=== PATIENT | female | born 1975 | race African-American/Black ===

== ENCOUNTER 2020-03-11 11:35 | Inpatient (IN) ==
[2020-03-11] MEDS ORDERED: HYDROmorphone 2 MG/1 ML VIAL IV STA (12:25)
[2020-03-11] MEDS ORDERED: ONDANSETRON 4 MG/2 ML VIAL IV STA (12:25)
[2020-03-11 12:34] LABS: Basophils # 0.1 10*3/uL (0.0-0.2); Basophils % 0.3 % (0.0-0.8); Eosinophils # 1.1 10*3/uL (0.0-0.87); Eosinophils % 4.7 % (0.00-10.9); Hematocrit 31.7 VOL% (35.7-47.0); Hemoglobin 10.6 GM/DL (12.0-16.0); Immature Granulocytes % 3.8 %; Immature Granulocytes Absolute 0.85 #; Lymphocytes # 2.9 10*3/uL (1.4-4.0); Lymphocytes % 12.9 % (21.3-54.2); Mean Corpuscular HGB Conc 33.4 GM/DL (32-36); Mean Corpuscular Volume 76.2 FL (87-102); Monocytes % 3.3 % (1.7-12.7); NRBC # 0.16 10*3/uL; Platelet Count 251 T/CUMM (130-400); Red Blood Count 4.16 MC/CUMM (3.8-5.5); Red Cell Distribution Width 18.3 % (9.3-17.3); White Blood Count 22.1 T/CUMM (4-12)
[2020-03-11 12:52] LABS: Albumin 2.1 G/DL (3.4-5.0); Bilirubin,Total 0.9 MG/DL (0.2-1.0); Calcium 7.9 MG/DL (8.5-10.1); Total Protein 7.7 G/DL (6.4-8.3)
[2020-03-11 13:12] LABS: Band Neutrophils 12 % (0-10); Eosinophils 8 % (0-10); Lymphocytes 14 % (20-55); Nucleated Red Blood Cells 4 (0-5); Segmented Neutrophils 62 % (50-85); Total Cells Counted 100
[2020-03-11 13:15] LABS: Anisocytosis 1+; Macrocytosis Slight; Polychromasia Slight; Smudge Cells Few
[2020-03-11] MEDS ORDERED: SIMETHICONE CHEW 125 MG TABLET PO PRN (15:47)
[2020-03-11] MEDS ORDERED: GLUCAGON 1 MG VIAL IM PRN (15:47)
[2020-03-11] MEDS ORDERED: ONDANSETRON 4 MG/2 ML VIAL IV PRN (15:47)
[2020-03-11] MEDS ORDERED: DEXTROSE 50% 25 GM/50 ML VIAL IV PRN (15:47)
[2020-03-11] MEDS ORDERED: BISACODYL 5 MG TABLET PO PRN (15:47)
[2020-03-11] MEDS ORDERED: AMPICILLIN/SULBACTAM 3,000 MG VIAL ONE (16:48)
[2020-03-11] MEDS ORDERED: AMPICILLIN/SULBACTAM 3,000 MG in SODIUM CHLORIDE 0.9% 100 ML IV SCH (17:00)
[2020-03-11] MEDS: ENOXAPARIN 40 MG/0.4 ML SYRINGE SUBCUT SCH (17:08)
[2020-03-11 17:50] LABS: Apearance,Urine Slightly Hazy (Clear); Blood, Urine Negative (Negative); Glucose,Urine (UA) Negative (Negative); Ketones,Urine 20 mg/dL (Negative); Mucus,Urine Many /LPF (Occasional); Nitrite,Urine Negative (Negative); Protein,Urine 30 MG/DL; RBC,Urine 4 /HPF (0-4); Squamous Epithelial Cell,Urine Occasional /HPF (0-10); Urine Color Amber (Yellow); Urine Specific Gravity 1.026 (1.001-1.035); WBC,Urine 1 /HPF (0-6)
[2020-03-11 17:51] LABS: Bilirubin,Urine Small mg/dL (Negative)
[2020-03-11] MEDS ORDERED: VANCOMYCIN INJ 1,000 MG in SODIUM CHLORIDE 0.9% 250 ML IV SCH (18:00)
[2020-03-11] MEDS: CEFEPIME 1,000 MG in SODIUM CHLORIDE 0.9% 100 ML IV SCH (20:00)
[2020-03-11] MEDS: LINEZOLID INJ 600 MG in PREMIX 1 EACH IV SCH (20:27)
[2020-03-11] MEDS: ACETAMINOPHEN 325 MG TABLET PO PRN (20:27)
[2020-03-11] MEDS: NYSTATIN POWDER 15 GM BOTTLE TOP SCH (22:20)
[2020-03-11] MEDS: KETOROLAC 15 MG/1 ML VIAL IV PRN (22:21)
[2020-03-12] MEDS: CEFEPIME 1,000 MG in SODIUM CHLORIDE 0.9% 100 ML IV SCH ×4 (00:10→17:24)
[2020-03-12] MEDS: KETOROLAC 15 MG/1 ML VIAL IV PRN (04:30)
[2020-03-12 06:49] LABS: Basophils # 0.1 10*3/uL (0.0-0.2); Basophils % 0.3 % (0.0-0.8); Eosinophils % 4.8 % (0.00-10.9); Hemoglobin 10.9 GM/DL (12.0-16.0); Immature Granulocytes % 3.5 %; Immature Granulocytes Absolute 0.69 #; Lymphocytes # 2.9 10*3/uL (1.4-4.0); Lymphocytes % 14.9 % (21.3-54.2); Mean Corpuscular Volume 77.6 FL (87-102); Mean Platelet Volume 11.1 FL (9.6-12.0); Monocytes % 3.1 % (1.7-12.7); NRBC # 0.13 10*3/uL; Neutrophils % 73.4 % (38.7-73.9); Platelet Count 270 T/CUMM (130-400); Red Blood Count 4.25 MC/CUMM (3.8-5.5); Red Cell Distribution Width 18.6 % (9.3-17.3); White Blood Count 19.6 T/CUMM (4-12)
[2020-03-12 07:26] LABS: Albumin 2.2 G/DL (3.4-5.0); Bilirubin,Total 1.5 MG/DL (0.2-1.0); Calcium 7.9 MG/DL (8.5-10.1); Risk Ratio 3.36; Thyroid Stimulating Hormone 4.01 uIU/ml (0.358-3.74); Total Protein 7.8 G/DL (6.4-8.3); VLDL CHOLESTEROL 18.6 MG/DL
[2020-03-12 08:38] LABS: Free T4 (Free Thyroxine) 1.4 NG/DL (0.76-1.46)
[2020-03-12] MEDS: HYDROmorphone 2 MG/1 ML VIAL IV PRN ×3 (08:45→22:44)
[2020-03-12 09:00] LABS: Eosinophils 5 % (0-10); Hypochromasia 1+; Lymphocytes 8 % (20-55); Macrocytosis Slight; Nucleated Red Blood Cells 2 (0-5); Platelet Estimate Adequate; Segmented Neutrophils 84 % (50-85); Total Cells Counted 100
[2020-03-12] MEDS: LINEZOLID INJ 600 MG in PREMIX 1 EACH IV SCH ×2 (09:33→20:50)
[2020-03-12] MEDS: NYSTATIN POWDER 15 GM BOTTLE TOP SCH ×3 (10:08→21:01)
[2020-03-12] MEDS ORDERED: FUROSEMIDE 40 MG/4 ML VIAL IV ONE (11:52)
[2020-03-12] MEDS: ENOXAPARIN 40 MG/0.4 ML SYRINGE SUBCUT SCH (16:32)
[2020-03-13] MEDS: CEFEPIME 1,000 MG in SODIUM CHLORIDE 0.9% 100 ML IV SCH ×4 (00:48→17:20)
[2020-03-13] MEDS: LEVOTHYROXINE 150 MCG TABLET PO SCH (05:40)
[2020-03-13 06:47] LABS: Basophils # 0.1 10*3/uL (0.0-0.2); Basophils % 0.3 % (0.0-0.8); Eosinophils # 0.9 10*3/uL (0.0-0.87); Hematocrit 33.8 VOL% (35.7-47.0); Hemoglobin 10.8 GM/DL (12.0-16.0); Immature Granulocytes % 2.6 %; Immature Granulocytes Absolute 0.39 #; Lymphocytes # 2.6 10*3/uL (1.4-4.0); Lymphocytes % 17.4 % (21.3-54.2); Mean Corpuscular Volume 78.2 FL (87-102); Mean Platelet Volume 10.9 FL (9.6-12.0); Neutrophils % 69.7 % (38.7-73.9); Platelet Count 313 T/CUMM (130-400); Red Blood Count 4.32 MC/CUMM (3.8-5.5); Red Cell Distribution Width 18.3 % (9.3-17.3)
[2020-03-13 07:09] LABS: Calcium 7.8 MG/DL (8.5-10.1)
[2020-03-13 07:12] LABS: Band Neutrophils 2 % (0-10); Eosinophils 4 % (0-10); Hypochromasia 1+; Lymphocytes 14 % (20-55); Platelet Estimate Adequate; Segmented Neutrophils 76 % (50-85); Total Cells Counted 100
[2020-03-13 07:13] LABS: Macrocytosis Slight
[2020-03-13] MEDS: LINEZOLID INJ 600 MG in PREMIX 1 EACH IV SCH (08:59)
[2020-03-13] MEDS: NYSTATIN POWDER 15 GM BOTTLE TOP SCH ×3 (10:14→20:59)
[2020-03-13] MEDS: HYDROmorphone 2 MG/1 ML VIAL IV PRN (10:22)
[2020-03-13] MEDS: fentaNYL 75 MCG/HR PATCH TRANSDERM SCH (15:24)
[2020-03-13] MEDS: FERROUS SULFATE 300 MG/5 ML UDCUP PO SCH ×2 (15:24→20:58)
[2020-03-13] MEDS: metOLazone 2.5 MG TABLET PO SCH (15:24)
[2020-03-13] MEDS: ENOXAPARIN 40 MG/0.4 ML SYRINGE SUBCUT SCH (15:25)
[2020-03-13] MEDS: FUROSEMIDE 40 MG TABLET PO SCH (15:25)
[2020-03-13] MEDS: PREGABALIN 50 MG CAPSULE PO SCH (20:58)
[2020-03-13] MEDS: POTASSIUM CHLORIDE 8 MEQ CAPSULE PO SCH (20:58)
[2020-03-13] MEDS: KETOROLAC 15 MG/1 ML VIAL IV PRN (22:50)
[2020-03-14] MEDS: CEFEPIME 1,000 MG in SODIUM CHLORIDE 0.9% 100 ML IV SCH ×5 (00:05→23:27)
[2020-03-14] MEDS: diphenhydrAMINE CAP 25 MG CAPSULE PO PRN ×2 (04:10→12:06)
[2020-03-14] MEDS: KETOROLAC 15 MG/1 ML VIAL IV PRN (04:40)
[2020-03-14] MEDS: LEVOTHYROXINE 150 MCG TABLET PO SCH (06:12)
[2020-03-14] MEDS: MELOXICAM 7.5 MG TABLET PO SCH (08:16)
[2020-03-14] MEDS: FERROUS SULFATE 300 MG/5 ML UDCUP PO SCH ×3 (08:16→20:43)
[2020-03-14] MEDS: NYSTATIN POWDER 15 GM BOTTLE TOP SCH ×3 (08:16→20:48)
[2020-03-14] MEDS: POTASSIUM CHLORIDE 8 MEQ CAPSULE PO SCH ×2 (08:16→20:38)
[2020-03-14] MEDS: FUROSEMIDE 40 MG TABLET PO SCH ×2 (08:16→16:18)
[2020-03-14] MEDS: PREGABALIN 50 MG CAPSULE PO SCH ×2 (08:16→20:38)
[2020-03-14] MEDS: metOLazone 2.5 MG TABLET PO SCH (08:16)
[2020-03-14] MEDS: ESCITALOPRAM 10 MG TABLET PO SCH (08:16)
[2020-03-14 08:20] LABS: Basophils % 0.3 % (0.0-0.8); Eosinophils # 0.7 10*3/uL (0.0-0.87); Eosinophils % 5.7 % (0.00-10.9); Hematocrit 33.3 VOL% (35.7-47.0); Hemoglobin 10.9 GM/DL (12.0-16.0); Immature Granulocytes % 1.8 %; Immature Granulocytes Absolute 0.21 #; Lymphocytes # 2.4 10*3/uL (1.4-4.0); Lymphocytes % 20.2 % (21.3-54.2); Mean Corpuscular HGB Conc 32.7 GM/DL (32-36); Mean Corpuscular Volume 76.6 FL (87-102); Mean Platelet Volume 10.2 FL (9.6-12.0); Monocytes % 3.7 % (1.7-12.7); NRBC # 0.13 10*3/uL; Neutrophils % 68.3 % (38.7-73.9); Platelet Count 328 T/CUMM (130-400); Red Blood Count 4.35 MC/CUMM (3.8-5.5); Red Cell Distribution Width 18.5 % (9.3-17.3); White Blood Count 11.9 T/CUMM (4-12)
[2020-03-14 08:28] LABS: Calcium 8.1 MG/DL (8.5-10.1); Osmolality,Calculated 266.1 MOS/KG (273-304)
[2020-03-14 08:45] LABS: Calcium 7.8 MG/DL (8.5-10.1); Osmolality,Calculated 266.1 MOS/KG (273-304)
[2020-03-14] MEDS: MOISTURIZING CREAM (EUCERIN) 106 GM JAR TOP SCH ×3 (12:06→20:48)
[2020-03-14] MEDS: ENOXAPARIN 40 MG/0.4 ML SYRINGE SUBCUT SCH (16:18)
[2020-03-14] MEDS: HYDROmorphone 2 MG TABLET PO PRN (19:54)
[2020-03-15] MEDS: HYDROmorphone 2 MG TABLET PO PRN ×3 (05:25→20:36)
[2020-03-15] MEDS: diphenhydrAMINE CAP 25 MG CAPSULE PO PRN ×2 (05:25→13:26)
[2020-03-15] MEDS: CEFEPIME 1,000 MG in SODIUM CHLORIDE 0.9% 100 ML IV SCH (05:26)
[2020-03-15] MEDS: LEVOTHYROXINE 150 MCG TABLET PO SCH (05:36)
[2020-03-15 06:01] LABS: Basophils % 0.4 % (0.0-0.8); Eosinophils # 0.6 10*3/uL (0.0-0.87); Eosinophils % 6.1 % (0.00-10.9); Hematocrit 37.4 VOL% (35.7-47.0); Hemoglobin 12.2 GM/DL (12.0-16.0); Lymphocytes # 1.9 10*3/uL (1.4-4.0); Lymphocytes % 18.9 % (21.3-54.2); Mean Corpuscular HGB Conc 32.6 GM/DL (32-36); Mean Corpuscular Volume 78.1 FL (87-102); Mean Platelet Volume 10.6 FL (9.6-12.0); Monocytes % 3.5 % (1.7-12.7); NRBC # 0.09 10*3/uL; Neutrophils % 70.1 % (38.7-73.9); Platelet Count 266 T/CUMM (130-400); Red Blood Count 4.79 MC/CUMM (3.8-5.5); Red Cell Distribution Width 18.8 % (9.3-17.3)
[2020-03-15 06:38] LABS: Albumin 2.2 G/DL (3.4-5.0); Bilirubin,Total 0.7 MG/DL (0.2-1.0); Calcium 8.5 MG/DL (8.5-10.1); Total Protein 8.2 G/DL (6.4-8.3)
[2020-03-15] MEDS: MOISTURIZING CREAM (EUCERIN) 106 GM JAR TOP SCH ×4 (09:03→20:38)
[2020-03-15] MEDS: FERROUS SULFATE 300 MG/5 ML UDCUP PO SCH ×3 (09:04→20:36)
[2020-03-15] MEDS: PREGABALIN 50 MG CAPSULE PO SCH ×2 (09:04→20:36)
[2020-03-15] MEDS: POTASSIUM CHLORIDE 8 MEQ CAPSULE PO SCH ×2 (09:04→20:36)
[2020-03-15] MEDS: MELOXICAM 7.5 MG TABLET PO SCH (09:04)
[2020-03-15] MEDS: ESCITALOPRAM 10 MG TABLET PO SCH (09:04)
[2020-03-15] MEDS: FUROSEMIDE 40 MG TABLET PO SCH ×2 (09:04→15:35)
[2020-03-15] MEDS: metOLazone 2.5 MG TABLET PO SCH (09:04)
[2020-03-15] MEDS: PANTOPRAZOLE 40 MG TABLET PO SCH (09:04)
[2020-03-15] MEDS: NYSTATIN POWDER 15 GM BOTTLE TOP SCH ×3 (09:06→21:45)
[2020-03-15] MEDS: DESITIN 4OZ/NYSTATIN 15 GRAM MIXTURE PASTE TOP SCH ×2 (13:26→20:38)
[2020-03-15] MEDS: ENOXAPARIN 40 MG/0.4 ML SYRINGE SUBCUT SCH ×2 (15:35→15:37)
[2020-03-16] MEDS: HYDROmorphone 2 MG TABLET PO PRN ×3 (03:56→18:19)
[2020-03-16] MEDS: diphenhydrAMINE CAP 25 MG CAPSULE PO PRN ×3 (03:57→18:21)
[2020-03-16] MEDS: LEVOTHYROXINE 150 MCG TABLET PO SCH (05:31)
[2020-03-16] MEDS: PREGABALIN 50 MG CAPSULE PO SCH ×2 (09:50→21:41)
[2020-03-16] MEDS: FERROUS SULFATE 300 MG/5 ML UDCUP PO SCH ×3 (09:51→21:41)
[2020-03-16] MEDS: MELOXICAM 7.5 MG TABLET PO SCH (09:51)
[2020-03-16] MEDS: PANTOPRAZOLE 40 MG TABLET PO SCH (09:51)
[2020-03-16] MEDS: metOLazone 2.5 MG TABLET PO SCH (09:51)
[2020-03-16] MEDS: POTASSIUM CHLORIDE 8 MEQ CAPSULE PO SCH ×2 (09:51→21:40)
[2020-03-16] MEDS: FUROSEMIDE 40 MG TABLET PO SCH ×2 (09:51→18:00)
[2020-03-16] MEDS: ESCITALOPRAM 10 MG TABLET PO SCH (09:51)
[2020-03-16] MEDS: DESITIN 4OZ/NYSTATIN 15 GRAM MIXTURE PASTE TOP SCH ×2 (09:52→21:43)
[2020-03-16] MEDS: NYSTATIN POWDER 15 GM BOTTLE TOP SCH ×3 (09:52→21:43)
[2020-03-16] MEDS: MOISTURIZING CREAM (EUCERIN) 106 GM JAR TOP SCH ×4 (09:52→21:43)
[2020-03-16] MEDS: fentaNYL 75 MCG/HR PATCH TRANSDERM SCH (17:59)
[2020-03-16] MEDS: ENOXAPARIN 40 MG/0.4 ML SYRINGE SUBCUT SCH (18:00)
[2020-03-16] MEDS: ZALEPLON 5 MG CAPSULE PO PRN (23:24)
[2020-03-17] MEDS: HYDROmorphone 2 MG TABLET PO PRN ×3 (01:23→21:36)
[2020-03-17] MEDS: diphenhydrAMINE CAP 25 MG CAPSULE PO PRN ×2 (01:23→21:36)
[2020-03-17] MEDS: LEVOTHYROXINE 150 MCG TABLET PO SCH (06:07)
[2020-03-17 07:51] LABS: Basophils % 0.1 % (0.0-0.8); Eosinophils # 0.4 10*3/uL (0.0-0.87); Eosinophils % 4.7 % (0.00-10.9); Hematocrit 34.2 VOL% (35.7-47.0); Immature Granulocytes % 0.6 %; Immature Granulocytes Absolute 0.05 #; Lymphocytes # 1.8 10*3/uL (1.4-4.0); Lymphocytes % 20.8 % (21.3-54.2); Mean Corpuscular HGB Conc 32.2 GM/DL (32-36); Mean Corpuscular Volume 78.8 FL (87-102); Mean Platelet Volume 9.9 FL (9.6-12.0); Monocytes % 4.3 % (1.7-12.7); NRBC # 0.05 10*3/uL; Neutrophils % 69.5 % (38.7-73.9); Platelet Count 195 T/CUMM (130-400); Red Blood Count 4.34 MC/CUMM (3.8-5.5); Red Cell Distribution Width 18.7 % (9.3-17.3); White Blood Count 8.6 T/CUMM (4-12)
[2020-03-17 08:16] LABS: Calcium 8.1 MG/DL (8.5-10.1); Osmolality,Calculated 272.7 MOS/KG (273-304)
[2020-03-17] MEDS ORDERED: MAGNESIUM SULF RIDER 4 GM in PREMIX 1 EACH IV PRN (08:41)
[2020-03-17] MEDS: PREGABALIN 50 MG CAPSULE PO SCH ×2 (10:04→21:34)
[2020-03-17] MEDS: FERROUS SULFATE 300 MG/5 ML UDCUP PO SCH ×3 (10:06→21:34)
[2020-03-17] MEDS: FUROSEMIDE 40 MG TABLET PO SCH ×2 (10:07→15:40)
[2020-03-17] MEDS: MELOXICAM 7.5 MG TABLET PO SCH (10:07)
[2020-03-17] MEDS: ESCITALOPRAM 10 MG TABLET PO SCH (10:07)
[2020-03-17] MEDS: metOLazone 2.5 MG TABLET PO SCH (10:07)
[2020-03-17] MEDS: PANTOPRAZOLE 40 MG TABLET PO SCH (10:07)
[2020-03-17] MEDS: NYSTATIN POWDER 15 GM BOTTLE TOP SCH ×3 (10:09→21:54)
[2020-03-17] MEDS: POTASSIUM CHLORIDE 20 MEQ TABLET PO SCH (10:18)
[2020-03-17] MEDS: CHOLECALCIFEROL 5,000 UNIT TABLET PO SCH (10:18)
[2020-03-17] MEDS: MOISTURIZING CREAM (EUCERIN) 106 GM JAR TOP SCH ×4 (10:18→21:54)
[2020-03-17] MEDS: DESITIN 4OZ/NYSTATIN 15 GRAM MIXTURE PASTE TOP SCH ×2 (10:18→21:54)
[2020-03-17] MEDS: MAGNESIUM SULF RIDER 2 GM in PREMIX 1 EACH IV PRN (10:19)
[2020-03-17] MEDS: ENOXAPARIN 40 MG/0.4 ML SYRINGE SUBCUT SCH (15:43)
[2020-03-18] MEDS: HYDROmorphone 2 MG TABLET PO PRN ×2 (04:26→16:37)
[2020-03-18] MEDS: diphenhydrAMINE CAP 25 MG CAPSULE PO PRN ×2 (04:27→16:37)
[2020-03-18] MEDS: LEVOTHYROXINE 150 MCG TABLET PO SCH (06:17)
[2020-03-18 06:56] LABS: % Iron Saturation 14.5 % (18-50); Calcium 8.2 MG/DL (8.5-10.1); Ferritin 49.8 ng/ml (8-252); Osmolality,Calculated 275.5 MOS/KG (273-304)
[2020-03-18] MEDS: metOLazone 2.5 MG TABLET PO SCH (08:19)
[2020-03-18] MEDS: POTASSIUM CHLORIDE 20 MEQ TABLET PO SCH (08:19)
[2020-03-18] MEDS: FERROUS SULFATE 300 MG/5 ML UDCUP PO SCH ×3 (08:19→21:17)
[2020-03-18] MEDS: PANTOPRAZOLE 40 MG TABLET PO SCH (08:19)
[2020-03-18] MEDS: FUROSEMIDE 40 MG TABLET PO SCH ×2 (08:19→15:34)
[2020-03-18] MEDS: MELOXICAM 7.5 MG TABLET PO SCH (08:19)
[2020-03-18] MEDS: MOISTURIZING CREAM (EUCERIN) 106 GM JAR TOP SCH ×4 (08:19→21:16)
[2020-03-18] MEDS: DESITIN 4OZ/NYSTATIN 15 GRAM MIXTURE PASTE TOP SCH ×2 (08:19→21:17)
[2020-03-18] MEDS: PREGABALIN 50 MG CAPSULE PO SCH ×2 (08:19→21:17)
[2020-03-18] MEDS: ESCITALOPRAM 10 MG TABLET PO SCH (08:19)
[2020-03-18] MEDS: CHOLECALCIFEROL 5,000 UNIT TABLET PO SCH (08:20)
[2020-03-18] MEDS: POTASSIUM CHLORIDE 20 MEQ TABLET PO PRN (08:20)
[2020-03-18] MEDS: MAGNESIUM SULF RIDER 2 GM in PREMIX 1 EACH IV PRN (08:20)
[2020-03-18] MEDS: NYSTATIN POWDER 15 GM BOTTLE TOP SCH ×3 (08:21→21:17)
[2020-03-18] MEDS: ENOXAPARIN 40 MG/0.4 ML SYRINGE SUBCUT SCH (15:36)
[2020-03-19] MEDS: HYDROmorphone 2 MG TABLET PO PRN ×3 (00:20→23:57)
[2020-03-19] MEDS: diphenhydrAMINE CAP 25 MG CAPSULE PO PRN (03:30)
[2020-03-19] MEDS: LEVOTHYROXINE 150 MCG TABLET PO SCH (05:34)
[2020-03-19 05:48] LABS: Calcium 8.2 MG/DL (8.5-10.1); Osmolality,Calculated 275.5 MOS/KG (273-304)
[2020-03-19] MEDS ORDERED: POTASSIUM CHLORIDE 20 MEQ TABLET PO SCH (09:00)
[2020-03-19] MEDS: CHOLECALCIFEROL 5,000 UNIT TABLET PO SCH (09:35)
[2020-03-19] MEDS: PANTOPRAZOLE 40 MG TABLET PO SCH (09:35)
[2020-03-19] MEDS: MAGNESIUM SULF RIDER 2 GM in PREMIX 1 EACH IV PRN (09:35)
[2020-03-19] MEDS: MAGNESIUM OXIDE 400 MG TABLET PO SCH ×2 (09:35→21:40)
[2020-03-19] MEDS: PREGABALIN 50 MG CAPSULE PO SCH ×2 (09:35→21:40)
[2020-03-19] MEDS: POTASSIUM CHLORIDE 20 MEQ TABLET PO SCH ×2 (09:35→21:40)
[2020-03-19] MEDS: FERROUS SULFATE 300 MG/5 ML UDCUP PO SCH ×3 (09:35→21:40)
[2020-03-19] MEDS: metOLazone 2.5 MG TABLET PO SCH (09:35)
[2020-03-19] MEDS: MELOXICAM 7.5 MG TABLET PO SCH (09:35)
[2020-03-19] MEDS: FUROSEMIDE 40 MG TABLET PO SCH ×2 (09:35→16:39)
[2020-03-19] MEDS: ESCITALOPRAM 10 MG TABLET PO SCH (09:35)
[2020-03-19] MEDS: POTASSIUM CHLORIDE 20 MEQ TABLET PO PRN ×4 (11:13→18:47)
[2020-03-19] MEDS: NYSTATIN POWDER 15 GM BOTTLE TOP SCH ×2 (14:23→21:46)
[2020-03-19] MEDS: MOISTURIZING CREAM (EUCERIN) 106 GM JAR TOP SCH ×3 (14:23→21:46)
[2020-03-19] MEDS: DESITIN 4OZ/NYSTATIN 15 GRAM MIXTURE PASTE TOP SCH ×2 (14:23→21:46)
[2020-03-19] MEDS: fentaNYL 75 MCG/HR PATCH TRANSDERM SCH (14:30)
[2020-03-19] MEDS: ENOXAPARIN 40 MG/0.4 ML SYRINGE SUBCUT SCH (16:40)
[2020-03-20] MEDS: POTASSIUM CHLORIDE 20 MEQ TABLET PO PRN ×4 (04:10→18:03)
[2020-03-20 05:50] LABS: Basophils % 0.4 % (0.0-0.8); Eosinophils # 0.4 10*3/uL (0.0-0.87); Hematocrit 35.9 VOL% (35.7-47.0); Hemoglobin 11.4 GM/DL (12.0-16.0); Immature Granulocytes % 0.5 %; Immature Granulocytes Absolute 0.04 #; Lymphocytes # 2.1 10*3/uL (1.4-4.0); Lymphocytes % 25.1 % (21.3-54.2); Mean Corpuscular HGB Conc 31.8 GM/DL (32-36); Mean Corpuscular Volume 80.5 FL (87-102); Mean Platelet Volume 10.4 FL (9.6-12.0); Monocytes % 5.6 % (1.7-12.7); NRBC # 0.04 10*3/uL; Neutrophils % 63.4 % (38.7-73.9); Platelet Count 237 T/CUMM (130-400); Red Blood Count 4.46 MC/CUMM (3.8-5.5); Red Cell Distribution Width 19.5 % (9.3-17.3); White Blood Count 8.3 T/CUMM (4-12)
[2020-03-20 06:09] LABS: Calcium 8.1 MG/DL (8.5-10.1); Osmolality,Calculated 273.7 MOS/KG (273-304)
[2020-03-20] MEDS: LEVOTHYROXINE 150 MCG TABLET PO SCH (06:37)
[2020-03-20] MEDS: MAGNESIUM OXIDE 400 MG TABLET PO SCH ×2 (08:54→22:08)
[2020-03-20] MEDS: FUROSEMIDE 40 MG TABLET PO SCH ×2 (08:54→15:34)
[2020-03-20] MEDS: MELOXICAM 7.5 MG TABLET PO SCH (08:54)
[2020-03-20] MEDS: tiZANidine 4 MG TABLET PO PRN (08:55)
[2020-03-20] MEDS: CHOLECALCIFEROL 5,000 UNIT TABLET PO SCH (08:55)
[2020-03-20] MEDS: POTASSIUM CHLORIDE 20 MEQ TABLET PO SCH ×2 (08:55→22:08)
[2020-03-20] MEDS: metOLazone 2.5 MG TABLET PO SCH (08:55)
[2020-03-20] MEDS: PANTOPRAZOLE 40 MG TABLET PO SCH (08:55)
[2020-03-20] MEDS: ESCITALOPRAM 10 MG TABLET PO SCH (08:55)
[2020-03-20] MEDS: PREGABALIN 50 MG CAPSULE PO SCH ×2 (08:56→22:07)
[2020-03-20] MEDS: FERROUS SULFATE 300 MG/5 ML UDCUP PO SCH ×3 (08:57→22:09)
[2020-03-20] MEDS: NYSTATIN POWDER 15 GM BOTTLE TOP SCH (08:58)
[2020-03-20] MEDS: MOISTURIZING CREAM (EUCERIN) 106 GM JAR TOP SCH ×4 (08:58→22:23)
[2020-03-20] MEDS: DESITIN 4OZ/NYSTATIN 15 GRAM MIXTURE PASTE TOP SCH ×2 (08:58→22:23)
[2020-03-20] MEDS: HYDROmorphone 2 MG TABLET PO PRN ×2 (11:57→20:42)
[2020-03-20] MEDS: ACETAMINOPHEN 325 MG TABLET PO PRN (13:26)
[2020-03-20] MEDS: ENOXAPARIN 40 MG/0.4 ML SYRINGE SUBCUT SCH ×2 (15:35→15:38)
[2020-03-20] MEDS: ZALEPLON 5 MG CAPSULE PO PRN (22:12)
[2020-03-21 05:10] LABS: Calcium 8.5 MG/DL (8.5-10.1); Osmolality,Calculated 277.5 MOS/KG (273-304)
[2020-03-21] MEDS: LEVOTHYROXINE 150 MCG TABLET PO SCH (05:48)
[2020-03-21] MEDS: CHOLECALCIFEROL 5,000 UNIT TABLET PO SCH (10:16)
[2020-03-21] MEDS: FERROUS SULFATE 300 MG/5 ML UDCUP PO SCH ×3 (10:16→22:03)
[2020-03-21] MEDS: PANTOPRAZOLE 40 MG TABLET PO SCH (10:16)
[2020-03-21] MEDS: FUROSEMIDE 40 MG TABLET PO SCH ×2 (10:16→15:47)
[2020-03-21] MEDS: PREGABALIN 50 MG CAPSULE PO SCH ×2 (10:17→22:03)
[2020-03-21] MEDS: MELOXICAM 7.5 MG TABLET PO SCH (10:17)
[2020-03-21] MEDS: ESCITALOPRAM 10 MG TABLET PO SCH (10:17)
[2020-03-21] MEDS: metOLazone 2.5 MG TABLET PO SCH (10:17)
[2020-03-21] MEDS: MAGNESIUM OXIDE 400 MG TABLET PO SCH ×2 (10:17→22:03)
[2020-03-21] MEDS: POTASSIUM CHLORIDE 20 MEQ TABLET PO SCH ×2 (10:17→22:03)
[2020-03-21] MEDS: DESITIN 4OZ/NYSTATIN 15 GRAM MIXTURE PASTE TOP SCH ×2 (10:18→22:03)
[2020-03-21] MEDS: MOISTURIZING CREAM (EUCERIN) 106 GM JAR TOP SCH ×4 (10:19→22:04)
[2020-03-21] MEDS: HYDROmorphone 2 MG TABLET PO PRN ×2 (12:35→22:02)
[2020-03-21] MEDS: ENOXAPARIN 40 MG/0.4 ML SYRINGE SUBCUT SCH (17:48)
[2020-03-22] MEDS: LEVOTHYROXINE 150 MCG TABLET PO SCH (05:30)
[2020-03-22] MEDS: tiZANidine 4 MG TABLET PO PRN (05:32)
[2020-03-22 05:38] LABS: Basophils % 0.4 % (0.0-0.8); Eosinophils # 0.4 10*3/uL (0.0-0.87); Eosinophils % 5.2 % (0.00-10.9); Hematocrit 37.2 VOL% (35.7-47.0); Hemoglobin 11.7 GM/DL (12.0-16.0); Immature Granulocytes % 0.4 %; Immature Granulocytes Absolute 0.03 #; Lymphocytes # 1.7 10*3/uL (1.4-4.0); Lymphocytes % 21.7 % (21.3-54.2); Mean Corpuscular HGB Conc 31.5 GM/DL (32-36); Mean Corpuscular Volume 81.6 FL (87-102); Mean Platelet Volume 10.6 FL (9.6-12.0); Monocytes % 6.6 % (1.7-12.7); NRBC # 0.03 10*3/uL; Neutrophils % 65.7 % (38.7-73.9); Platelet Count 138 T/CUMM (130-400); Red Blood Count 4.56 MC/CUMM (3.8-5.5); White Blood Count 7.9 T/CUMM (4-12)
[2020-03-22 05:58] LABS: Anisocytosis 1+; Hypochromasia 1+; Microcytosis 1+; Target Cells Few
[2020-03-22 05:59] LABS: Platelet Estimate Adequate
[2020-03-22 06:06] LABS: Calcium 8.4 MG/DL (8.5-10.1); Osmolality,Calculated 276.7 MOS/KG (273-304)
[2020-03-22] MEDS: HYDROmorphone 2 MG TABLET PO PRN ×2 (09:18→16:07)
[2020-03-22] MEDS: MOISTURIZING CREAM (EUCERIN) 106 GM JAR TOP SCH ×2 (09:20→15:58)
[2020-03-22] MEDS: DESITIN 4OZ/NYSTATIN 15 GRAM MIXTURE PASTE TOP SCH (09:20)
[2020-03-22] MEDS: PREGABALIN 50 MG CAPSULE PO SCH (09:21)
[2020-03-22] MEDS: POTASSIUM CHLORIDE 20 MEQ TABLET PO SCH (09:21)
[2020-03-22] MEDS: FERROUS SULFATE 300 MG/5 ML UDCUP PO SCH ×2 (09:21→16:00)
[2020-03-22] MEDS: ESCITALOPRAM 10 MG TABLET PO SCH (09:22)
[2020-03-22] MEDS: MAGNESIUM OXIDE 400 MG TABLET PO SCH (09:22)
[2020-03-22] MEDS: metOLazone 2.5 MG TABLET PO SCH (09:22)
[2020-03-22] MEDS: FUROSEMIDE 40 MG TABLET PO SCH ×2 (09:22→17:05)
[2020-03-22] MEDS: MELOXICAM 7.5 MG TABLET PO SCH (09:22)
[2020-03-22] MEDS: PANTOPRAZOLE 40 MG TABLET PO SCH (09:22)
[2020-03-22] MEDS: CHOLECALCIFEROL 5,000 UNIT TABLET PO SCH (09:22)
[2020-03-22] MEDS: fentaNYL 75 MCG/HR PATCH TRANSDERM SCH (15:59)
[2020-03-22 16:37] VITALS: BP 128/61
[2020-03-22] MEDS: ENOXAPARIN 40 MG/0.4 ML SYRINGE SUBCUT SCH (17:05)
[2020-03-22] MEDS ORDERED: DESITIN 4OZ/NYSTATIN 15 GRAM MIXTURE PASTE TOP SCH (21:00)
== END 2020-03-22 18:02 | disposition home health service (06) | DRG 593 ==
LOC: N.EDINP 11:35 → N.ED 11:35 → SUPCPDRO 15:47 → SUATTDRO 15:47 → N.TELEN 16:42 → SUATTDRO 03-14 13:01
PROVIDERS: ADMIT Internal Medicine; ATTEND Internal Medicine

== ENCOUNTER 2020-12-20 16:36 | Inpatient (IN) ==
[2020-12-20 17:34] LABS: Amorphous Crystals,Urine Moderate /HPF (Few); Bacteria,Urine Occasional /HPF (Few); Bilirubin,Urine Negative (Negative); Blood, Urine Moderate mg/dL (Negative); Glucose,Urine (UA) Negative (Negative); Ketones,Urine Negative (Negative); Nitrite,Urine Positive (Negative); Protein,Urine 30 MG/DL; RBC,Urine 10 /HPF (0-4); Squamous Epithelial Cell,Urine Occasional /HPF (0-10); Urine Appearance CLOUDY (Clear); Urine Color Yellow (Yellow); Urine Specific Gravity 1.014 (1.001-1.035); Urine Urobilinogen < 2.0 EU/DL (0.2-1.0); WBC,Urine 39 /HPF (0-6)
[2020-12-20 17:36] LABS: Basophils % 0.2 % (0.0-0.8); Eosinophils % 0.3 % (0.00-10.9); Hematocrit 35.9 VOL% (35.7-47.0); Hemoglobin 12.4 GM/DL (12.0-16.0); Immature Granulocytes % 0.7 %; Lymphocytes # 1.2 10*3/uL (1.4-4.0); Lymphocytes % 8.6 % (21.3-54.2); Mean Corpuscular HGB Conc 34.5 GM/DL (32-36); Mean Corpuscular Volume 84.3 FL (87-102); Mean Platelet Volume 13.1 FL (9.6-12.0); Monocytes % 4.7 % (1.7-12.7); Neutrophils % 85.5 % (38.7-73.9); Platelet Count 180 T/CUMM (130-400); Red Blood Count 4.26 MC/CUMM (3.8-5.5); Red Cell Distribution Width 15.6 % (9.3-17.3)
[2020-12-20] MEDS ORDERED: cefTRIAXone 1,000 MG in SODIUM CHLORIDE 0.9% 100 ML IV STA (17:46)
[2020-12-20 17:47] LABS: Albumin 2.7 G/DL (3.4-5.0); Bilirubin,Total 0.9 MG/DL (0.2-1.0); Total Protein 7.9 G/DL (6.4-8.2)
[2020-12-20] MEDS ORDERED: POTASSIUM CHLORIDE RIDER 20 MEQ in PREMIX 1 EACH IV STA (18:06)
[2020-12-20] MEDS ORDERED: cefTRIAXone 2,000 MG in SYRINGE 1 EACH IV STA (18:10)
[2020-12-20] MEDS ORDERED: MAGNESIUM SULF RIDER 2 GM in PREMIX 1 EACH IV STA (18:24)
[2020-12-20] MEDS ORDERED: ONDANSETRON 4 MG/2 ML VIAL IV PRN (19:21)
[2020-12-20] MEDS ORDERED: PROMETHAZINE 25 MG/1 ML VIAL IM PRN (19:21)
[2020-12-20] MEDS ORDERED: GLUCAGON 1 MG VIAL IM PRN (19:21)
[2020-12-20] MEDS ORDERED: DEXTROSE 50% 25 GM/50 ML VIAL IV PRN (19:21)
[2020-12-20] MEDS ORDERED: POTASSIUM CHLORIDE RIDER 200 ML IV ONE (19:58)
[2020-12-20] MEDS ORDERED: LEVOFLOXACIN INJ 750 MG in PREMIX 1 EACH IV SCH (21:00)
[2020-12-20] MEDS: PREGABALIN 50 MG CAPSULE PO SCH (23:06)
[2020-12-20] MEDS: fentaNYL 75 MCG/HR PATCH TRANSDERM SCH (23:09)
[2020-12-20] MEDS: ENOXAPARIN 40 MG/0.4 ML SYRINGE SUBCUT SCH (23:11)
[2020-12-20] MEDS: guaiFENesin/DM ER 600-30 MG TABLET PO SCH (23:13)
[2020-12-20] MEDS: MUPIROCIN 2% OINT 22 GM TUBE TOP SCH (23:21)
[2020-12-21] MEDS: traMADol 50 MG TABLET PO PRN ×4 (00:29→14:31)
[2020-12-21] MEDS: SODIUM CHLORIDE 0.9% 1,000 ML IV SCH ×2 (01:00→14:32)
[2020-12-21] MEDS: ALBUTEROL/IPRATROPIUM 3 ML NEB RESP TX SCH ×4 (03:00→19:41)
[2020-12-21 05:19] LABS: Basophils % 0.2 % (0.0-0.8); Eosinophils % 0.2 % (0.00-10.9); Hematocrit 31.6 VOL% (35.7-47.0); Hemoglobin 11.3 GM/DL (12.0-16.0); Immature Granulocytes Absolute 0.16 #; Lymphocytes # 1.3 10*3/uL (1.4-4.0); Lymphocytes % 8.4 % (21.3-54.2); Mean Corpuscular HGB Conc 35.8 GM/DL (32-36); Mean Corpuscular Volume 81.9 FL (87-102); Mean Platelet Volume 12.7 FL (9.6-12.0); Neutrophils % 85.2 % (38.7-73.9); Platelet Count 157 T/CUMM (130-400); Red Blood Count 3.86 MC/CUMM (3.8-5.5); Red Cell Distribution Width 15.2 % (9.3-17.3); White Blood Count 15.7 T/CUMM (4-12)
[2020-12-21 05:50] LABS: Calcium 8.5 MG/DL (8.5-10.1); Osmolality,Calculated 269.1 MOS/KG (273-304)
[2020-12-21] MEDS: ACETAMINOPHEN 325 MG TABLET PO PRN ×3 (06:39→14:32)
[2020-12-21] MEDS: PREGABALIN 50 MG CAPSULE PO SCH ×2 (08:22→22:21)
[2020-12-21] MEDS: FUROSEMIDE 40 MG TABLET PO SCH ×2 (08:22→17:02)
[2020-12-21] MEDS: MUPIROCIN 2% OINT 22 GM TUBE TOP SCH ×3 (08:23→22:22)
[2020-12-21] MEDS: guaiFENesin/DM ER 600-30 MG TABLET PO SCH ×2 (08:23→22:22)
[2020-12-21] MEDS: SERTRALINE 50 MG TABLET PO SCH (08:23)
[2020-12-21] MEDS: POTASSIUM CHLORIDE 20 MEQ TABLET PO SCH (08:23)
[2020-12-21] MEDS: PANTOPRAZOLE 40 MG VIAL IV SCH (08:23)
[2020-12-21] MEDS ORDERED: MELOXICAM 7.5 MG TABLET PO SCH (09:00)
[2020-12-21] MEDS ORDERED: metOLazone 5 MG TABLET PO SCH (09:00)
[2020-12-21] MEDS: AZITHROMYCIN 250 MG TABLET PO SCH (11:11)
[2020-12-21] MEDS: cefTRIAXone 1,000 MG in SYRINGE 1 EACH IV SCH (11:57)
[2020-12-21] MEDS: KETOROLAC 15 MG/1 ML VIAL IV PRN ×2 (14:32→22:22)
[2020-12-21] MEDS: ENOXAPARIN 40 MG/0.4 ML SYRINGE SUBCUT SCH ×2 (22:10→22:21)
[2020-12-21] MEDS: ZALEPLON 5 MG CAPSULE PO SCH (22:21)
[2020-12-22] MEDS: ALBUTEROL/IPRATROPIUM 3 ML NEB RESP TX SCH ×4 (02:04→19:27)
[2020-12-22 05:29] LABS: Basophils % 0.3 % (0.0-0.8); Eosinophils # 0.6 10*3/uL (0.0-0.87); Eosinophils % 3.7 % (0.00-10.9); Hematocrit 34.2 VOL% (35.7-47.0); Hemoglobin 11.6 GM/DL (12.0-16.0); Immature Granulocytes % 0.9 %; Immature Granulocytes Absolute 0.14 #; Lymphocytes # 1.3 10*3/uL (1.4-4.0); Lymphocytes % 8.7 % (21.3-54.2); Mean Corpuscular HGB Conc 33.9 GM/DL (32-36); Mean Corpuscular Volume 85.7 FL (87-102); Mean Platelet Volume 13.4 FL (9.6-12.0); Monocytes % 4.4 % (1.7-12.7); NRBC # 0.03 10*3/uL; Platelet Count 142 T/CUMM (130-400); Red Blood Count 3.99 MC/CUMM (3.8-5.5); Red Cell Distribution Width 15.1 % (9.3-17.3); White Blood Count 15.3 T/CUMM (4-12)
[2020-12-22 06:01] LABS: Blood Urea Nitrogen 12 MG/DL (7-18); Carbon Dioxide 28 MMOL/L (21-32); Estimated Glom Filtration Rate 130 ML/MIN; Glucose 151 MG/DL (74-106); Osmolality,Calculated 259.1 MOS/KG (273-304); Potassium 3.7 MMOL/L (3.5-5.1); Sodium 128 MMOL/L (136-145)
[2020-12-22 06:24] LABS: Calcium < 5.0 MG/DL (8.5-10.1)
[2020-12-22] MEDS: SERTRALINE 50 MG TABLET PO SCH (09:25)
[2020-12-22] MEDS: PREGABALIN 50 MG CAPSULE PO SCH ×2 (09:25→20:27)
[2020-12-22] MEDS: MAGNESIUM OXIDE 400 MG TABLET PO SCH ×2 (09:25→20:27)
[2020-12-22] MEDS: POTASSIUM CHLORIDE 20 MEQ TABLET PO SCH (09:25)
[2020-12-22] MEDS: PANTOPRAZOLE 40 MG VIAL IV SCH (09:26)
[2020-12-22] MEDS: AZITHROMYCIN 250 MG TABLET PO SCH (09:26)
[2020-12-22] MEDS: guaiFENesin/DM ER 600-30 MG TABLET PO SCH ×2 (09:26→20:27)
[2020-12-22] MEDS: traMADol 50 MG TABLET PO PRN ×3 (09:26→22:22)
[2020-12-22] MEDS: MUPIROCIN 2% OINT 22 GM TUBE TOP SCH ×3 (10:07→20:25)
[2020-12-22] MEDS: cefTRIAXone 1,000 MG in SYRINGE 1 EACH IV SCH (10:07)
[2020-12-22] MEDS: FUROSEMIDE 40 MG TABLET PO SCH (10:14)
[2020-12-22] MEDS ORDERED: SKIN HEALING OINT (AQUAPHOR) 50 GM TUBE TOP PRN (11:02)
[2020-12-22] MEDS: KETOROLAC 15 MG/1 ML VIAL IV PRN ×2 (12:20→20:28)
[2020-12-22] MEDS ORDERED: DICLOFENAC 1% GEL 100 GM TUBE TOP PRN (14:25)
[2020-12-22] MEDS: tiZANidine 4 MG TABLET PO PRN (15:44)
[2020-12-22] MEDS: ZALEPLON 5 MG CAPSULE PO SCH (22:21)
[2020-12-22] MEDS: ENOXAPARIN 40 MG/0.4 ML SYRINGE SUBCUT SCH (23:44)
[2020-12-23] MEDS: ALBUTEROL/IPRATROPIUM 3 ML NEB RESP TX SCH ×4 (03:46→19:26)
[2020-12-23] MEDS: traMADol 50 MG TABLET PO PRN ×2 (05:18→10:22)
[2020-12-23] MEDS: KETOROLAC 15 MG/1 ML VIAL IV PRN ×2 (05:19→18:33)
[2020-12-23] MEDS: PANTOPRAZOLE 40 MG TABLET PO SCH (05:32)
[2020-12-23 06:29] LABS: Basophils % 0.2 % (0.0-0.8); Eosinophils # 0.6 10*3/uL (0.0-0.87); Eosinophils % 6.2 % (0.00-10.9); Hematocrit 32.8 VOL% (35.7-47.0); Hemoglobin 11.2 GM/DL (12.0-16.0); Immature Granulocytes % 0.8 %; Immature Granulocytes Absolute 0.08 #; Lymphocytes # 1.3 10*3/uL (1.4-4.0); Lymphocytes % 13.3 % (21.3-54.2); Mean Corpuscular HGB Conc 34.1 GM/DL (32-36); Mean Corpuscular Volume 84.3 FL (87-102); Mean Platelet Volume 12.7 FL (9.6-12.0); Monocytes % 6.2 % (1.7-12.7); Neutrophils % 73.3 % (38.7-73.9); Platelet Count 147 T/CUMM (130-400); Red Blood Count 3.89 MC/CUMM (3.8-5.5)
[2020-12-23 06:43] LABS: Osmolality,Calculated 264.5 MOS/KG (273-304); Potassium 2.9 MMOL/L (3.5-5.1)
[2020-12-23 07:03] LABS: Band Neutrophils 1 % (0-10); Eosinophils 10 % (0-10); Hypochromasia 1+; Lymphocytes 9 % (20-55); Segmented Neutrophils 73 % (50-85); Total Cells Counted 100
[2020-12-23 07:04] LABS: Microcytosis 1+
[2020-12-23 07:07] LABS: Platelet Estimate Adequate; Target Cells Slight
[2020-12-23] MEDS: PREGABALIN 50 MG CAPSULE PO SCH ×2 (08:43→20:19)
[2020-12-23] MEDS: POTASSIUM CHLORIDE 20 MEQ TABLET PO SCH (08:43)
[2020-12-23] MEDS: SERTRALINE 50 MG TABLET PO SCH (08:43)
[2020-12-23] MEDS: AZITHROMYCIN 250 MG TABLET PO SCH (08:43)
[2020-12-23] MEDS: guaiFENesin/DM ER 600-30 MG TABLET PO SCH ×2 (08:43→20:19)
[2020-12-23] MEDS: cefTRIAXone 1,000 MG in SYRINGE 1 EACH IV SCH ×2 (08:44→10:30)
[2020-12-23] MEDS: MAGNESIUM OXIDE 400 MG TABLET PO SCH ×2 (08:45→14:14)
[2020-12-23] MEDS: MUPIROCIN 2% OINT 22 GM TUBE TOP SCH ×3 (08:46→20:20)
[2020-12-23] MEDS ORDERED: POTASSIUM CHLORIDE 20 MEQ TABLET PO ONE (09:00)
[2020-12-23] MEDS: tiZANidine 4 MG TABLET PO PRN (14:13)
[2020-12-23 15:05] LABS: Cyclic Citrull Peptide Interp Negative
[2020-12-23 15:29] LABS: Calcium 8.1 MG/DL (8.5-10.1); Osmolality,Calculated 265.5 MOS/KG (273-304)
[2020-12-23] MEDS: FUROSEMIDE 40 MG TABLET PO SCH (16:22)
[2020-12-23 16:41] LABS: Rheumatoid Factor < 15 IU/ML (<15); Uric Acid 12.4 MG/DL (2.6-6.0)
[2020-12-23] MEDS: ZALEPLON 5 MG CAPSULE PO SCH (20:19)
[2020-12-23] MEDS: ENOXAPARIN 40 MG/0.4 ML SYRINGE SUBCUT SCH (20:20)
[2020-12-23] MEDS: fentaNYL 75 MCG/HR PATCH TRANSDERM SCH (22:07)
[2020-12-24] MEDS: ALBUTEROL/IPRATROPIUM 3 ML NEB RESP TX SCH ×2 (00:18→07:28)
[2020-12-24] MEDS: KETOROLAC 15 MG/1 ML VIAL IV PRN (05:06)
[2020-12-24] MEDS: PANTOPRAZOLE 40 MG TABLET PO SCH (06:28)
[2020-12-24 06:29] LABS: Osmolality,Calculated 269.2 MOS/KG (273-304); Potassium 3.1 MMOL/L (3.5-5.1)
[2020-12-24 07:35] VITALS: BP 122/60
[2020-12-24] MEDS: AZITHROMYCIN 250 MG TABLET PO SCH (08:53)
[2020-12-24] MEDS: guaiFENesin/DM ER 600-30 MG TABLET PO SCH (08:53)
[2020-12-24] MEDS: FUROSEMIDE 40 MG TABLET PO SCH (08:53)
[2020-12-24] MEDS: SERTRALINE 50 MG TABLET PO SCH (08:53)
[2020-12-24] MEDS: POTASSIUM CHLORIDE 20 MEQ TABLET PO SCH ×3 (08:53→11:14)
[2020-12-24] MEDS: PREGABALIN 50 MG CAPSULE PO SCH (08:53)
[2020-12-24] MEDS: MAGNESIUM OXIDE 400 MG TABLET PO SCH ×2 (08:53→11:14)
[2020-12-24] MEDS: cefTRIAXone 1,000 MG in SYRINGE 1 EACH IV SCH (08:54)
[2020-12-24] MEDS: MUPIROCIN 2% OINT 22 GM TUBE TOP SCH (08:55)
[2020-12-24] MEDS: traMADol 50 MG TABLET PO PRN (09:38)
== END 2020-12-24 12:45 | disposition home health service (06) | DRG 698 ==
LOC: N.ED 16:36 → N.EDINP 19:22 → N.5E 21:12
PROVIDERS: ADMIT Internal Medicine; ATTEND Internal Medicine

== ENCOUNTER 2021-11-24 11:31 | Inpatient (IN) ==
[2021-11-24 13:42] LABS: Basophils # 0.1 10*3/uL (0.0-0.2); Basophils % 0.3 % (0.0-0.8); Eosinophils # 0.1 10*3/uL (0.0-0.87); Eosinophils % 0.5 % (0.00-10.9); Hematocrit 37.9 VOL% (35.7-47.0); Hemoglobin 12.7 GM/DL (12.0-16.0); Immature Granulocytes % 12.7 %; Immature Granulocytes Absolute 3.04 #; Lymphocytes # 1.7 10*3/uL (1.4-4.0); Lymphocytes % 7.1 % (21.3-54.2); Mean Corpuscular HGB Conc 33.5 GM/DL (32-36); Mean Corpuscular Volume 82.4 FL (87-102); Mean Platelet Volume 11.1 FL (9.6-12.0); Monocytes % 3.6 % (1.7-12.7); NRBC # 0.38 10*3/uL; Neutrophils % 75.8 % (38.7-73.9); Platelet Count 289 T/CUMM (130-400); Red Cell Distribution Width 15.9 % (9.3-17.3); White Blood Count 23.9 T/CUMM (4-12)
[2021-11-24] MEDS ORDERED: FUROSEMIDE 40 MG/4 ML VIAL IV STA (13:42)
[2021-11-24 14:06] LABS: Albumin 2.2 G/DL (3.4-5.0); Bilirubin,Total 0.6 MG/DL (0.20-1.00); Calcium 8.9 MG/DL (8.5-10.1); Osmolality,Calculated 278.1 MOS/KG (273-304); Potassium 4.7 MMOL/L (3.5-5.1); Total Protein 8.1 G/DL (6.4-8.2)
[2021-11-24 14:11] LABS: Atypical Lymphocytes Few; Band Neutrophils 1 % (0-10); Lymphocytes 7 % (20-55); Metamyelocytes 1 %; Myelocytes 1 %; Platelet Estimate Normal; Polychromasia Slight; Segmented Neutrophils 81 % (50-85); Total Cells Counted 100
[2021-11-24] MEDS ORDERED: DEXTROSE 10% 25 GM/250 ML BAG IV PRN (15:33)
[2021-11-24] MEDS ORDERED: NICOTINE 21 MG/24 HR PATCH TRANSDERM PRN (15:33)
[2021-11-24] MEDS ORDERED: BISACODYL 5 MG TABLET PO PRN (15:33)
[2021-11-24] MEDS ORDERED: guaiFENesin/DM ER 600-30 MG TABLET PO PRN (15:33)
[2021-11-24] MEDS ORDERED: GLUCAGON 1 MG VIAL IM PRN (15:33)
[2021-11-24] MEDS ORDERED: ONDANSETRON 4 MG/2 ML VIAL IV PRN (15:33)
[2021-11-24] MEDS ORDERED: POTASSIUM CHLORIDE 20 MEQ TABLET PO PRN (15:37)
[2021-11-24] MEDS ORDERED: DICLOFENAC 1% GEL 100 GM TUBE TOP PRN (15:37)
[2021-11-24] MEDS: FUROSEMIDE 40 MG/4 ML VIAL IV SCH (16:20)
[2021-11-24] MEDS: MEROPENEM 500 MG in SODIUM CHLORIDE 0.9% 100 ML IV SCH ×2 (16:21→22:39)
[2021-11-24] MEDS: ENOXAPARIN 40 MG/0.4 ML SYRINGE SUBCUT SCH (16:44)
[2021-11-24] MEDS: INSULIN LISPRO 100 UNIT/ML SUBCUT SCH ×2 (16:53→22:01)
[2021-11-24] MEDS ORDERED: HYDROmorphone 2 MG/1 ML VIAL ONE (17:36)
[2021-11-24] MEDS: DOCUSATE SODIUM 100 MG CAPSULE PO SCH (22:01)
[2021-11-25] MEDS: MEROPENEM 500 MG in SODIUM CHLORIDE 0.9% 100 ML IV SCH ×2 (04:28→10:05)
[2021-11-25 05:09] LABS: Bacteria,Urine Occasional /HPF (Few); Bilirubin,Urine Negative (Negative); Blood, Urine Moderate mg/dL (Negative); Glucose,Urine (UA) Negative (Negative); Ketones,Urine Negative (Negative); Mucus,Urine Occasional /LPF (Occasional); Nitrite,Urine Negative (Negative); Protein,Urine Trace mg/dL (Negative); RBC,Urine 17 /HPF (0-4); Squamous Epithelial Cell,Urine Occasional /HPF (0-10); Urine Appearance Clear (Clear); Urine Color Yellow (Yellow); Urine Urobilinogen 0.2 eU/dL (<2.0)
[2021-11-25] MEDS: DOCUSATE SODIUM 100 MG CAPSULE PO SCH ×2 (08:43→20:11)
[2021-11-25] MEDS: POTASSIUM CHLORIDE 20 MEQ TABLET PO SCH (08:43)
[2021-11-25] MEDS: FUROSEMIDE 40 MG/4 ML VIAL IV SCH (08:44)
[2021-11-25] MEDS ORDERED: OXYBUTYNIN XL 5 MG TABLET PO SCH (09:00)
[2021-11-25] MEDS ORDERED: metOLazone 5 MG TABLET PO SCH (09:00)
[2021-11-25] MEDS: INSULIN LISPRO 100 UNIT/ML SUBCUT SCH ×4 (09:00→20:12)
[2021-11-25 11:00] LABS: Arterial Base Excess iSTAT -2 MMOL/L (-2.5-2.5); Arterial Bicarbonate iSTAT 25.2 MMOL/L (20-26); Arterial O2 Saturation iSTAT 96 % (95-100); Arterial PCO2 iSTAT 51 MM HG (35-48); Arterial PO2 iSTAT 94 MM HG (80-95); Arterial Total CO2 iSTAT 27 MMO/L (23-27); Arterial pH iSTAT 7.302 (7.35-7.45)
[2021-11-25] MEDS ORDERED: NALOXONE 0.4 MG/ML VIAL IV ONE (11:09)
[2021-11-25 11:39] LABS: Basophils # 0.1 10*3/uL (0.0-0.2); Basophils % 0.3 % (0.0-0.8); Eosinophils # 0.1 10*3/uL (0.0-0.87); Eosinophils % 0.4 % (0.00-10.9); Hematocrit 34.9 VOL% (35.7-47.0); Hemoglobin 11.6 GM/DL (12.0-16.0); Immature Granulocytes % 11.8 %; Immature Granulocytes Absolute 2.53 #; Lymphocytes # 1.8 10*3/uL (1.4-4.0); Lymphocytes % 8.6 % (21.3-54.2); Mean Corpuscular HGB Conc 33.2 GM/DL (32-36); Mean Corpuscular Volume 81.7 FL (87-102); Mean Platelet Volume 11.3 FL (9.6-12.0); Monocytes % 4.2 % (1.7-12.7); NRBC # 0.35 10*3/uL; Neutrophils % 74.7 % (38.7-73.9); Platelet Count 289 T/CUMM (130-400); Red Blood Count 4.27 MC/CUMM (3.8-5.5); Red Cell Distribution Width 15.6 % (9.3-17.3); White Blood Count 21.4 T/CUMM (4-12)
[2021-11-25 11:59] LABS: Bilirubin,Total 0.6 MG/DL (0.20-1.00); Calcium 8.9 MG/DL (8.5-10.1); Potassium 3.7 MMOL/L (3.5-5.1); Risk Ratio 4.97; Total Protein 8.1 G/DL (6.4-8.2); VLDL Cholesterol 20.2 MG/DL
[2021-11-25 12:00] LABS: Anisocytosis Slight; Band Neutrophils 17 % (0-10); Lymphocytes 10 % (20-55); Metamyelocytes 1 %; Myelocytes 2 %; Nucleated Red Blood Cells 3 (0-5); Platelet Estimate Normal; Promyelocytes 1 %; Segmented Neutrophils 64 % (50-85); Total Cells Counted 100
[2021-11-25 12:01] LABS: Macrocytosis 1+; Target Cells Few
[2021-11-25] MEDS: ENOXAPARIN 40 MG/0.4 ML SYRINGE SUBCUT SCH (15:42)
[2021-11-25] MEDS: MEROPENEM 2,000 MG in SODIUM CHLORIDE 0.9% 100 ML IV SCH (15:42)
[2021-11-26] MEDS: MEROPENEM 2,000 MG in SODIUM CHLORIDE 0.9% 100 ML IV SCH ×4 (00:13→22:36)
[2021-11-26 06:02] LABS: Basophils # 0.1 10*3/uL (0.0-0.2); Basophils % 0.3 % (0.0-0.8); Eosinophils # 0.1 10*3/uL (0.0-0.87); Eosinophils % 0.6 % (0.00-10.9); Hematocrit 34.8 VOL% (35.7-47.0); Hemoglobin 12.1 GM/DL (12.0-16.0); Immature Granulocytes % 12.8 %; Immature Granulocytes Absolute 2.61 #; Lymphocytes # 2.3 10*3/uL (1.4-4.0); Lymphocytes % 11.4 % (21.3-54.2); Mean Corpuscular HGB Conc 34.8 GM/DL (32-36); Mean Corpuscular Volume 78.9 FL (87-102); Mean Platelet Volume 10.6 FL (9.6-12.0); NRBC # 0.42 10*3/uL; Neutrophils % 70.9 % (38.7-73.9); Platelet Count 295 T/CUMM (130-400); Red Blood Count 4.41 MC/CUMM (3.8-5.5); Red Cell Distribution Width 15.4 % (9.3-17.3); White Blood Count 20.5 T/CUMM (4-12)
[2021-11-26 06:17] LABS: Calcium 8.4 MG/DL (8.5-10.1); Osmolality,Calculated 278.8 MOS/KG (273-304)
[2021-11-26 07:03] LABS: Anisocytosis 1+; Band Neutrophils 13 % (0-10); Eosinophils 1 % (0-10); Lymphocytes 10 % (20-55); Macrocytosis 1+; Metamyelocytes 2 %; Myelocytes 1 %; Nucleated Red Blood Cells 6 (0-5); Platelet Estimate Normal; Segmented Neutrophils 67 % (50-85); Target Cells Few; Total Cells Counted 100
[2021-11-26] MEDS: DOCUSATE SODIUM 100 MG CAPSULE PO SCH ×2 (08:52→20:32)
[2021-11-26] MEDS: MELOXICAM 7.5 MG TABLET PO SCH (08:52)
[2021-11-26] MEDS: POTASSIUM CHLORIDE 20 MEQ TABLET PO SCH (08:52)
[2021-11-26] MEDS: FUROSEMIDE 40 MG TABLET PO SCH (08:52)
[2021-11-26] MEDS: CELECOXIB 200 MG CAPSULE PO SCH (08:52)
[2021-11-26] MEDS: ISOSORBIDE MONONITRATE 30 MG TABLET PO SCH (08:52)
[2021-11-26] MEDS: amLODIPine 10 MG TABLET PO SCH (08:52)
[2021-11-26] MEDS: PREGABALIN 50 MG CAPSULE PO SCH (08:54)
[2021-11-26] MEDS: INSULIN LISPRO 100 UNIT/ML SUBCUT SCH ×4 (09:00→20:33)
[2021-11-26] MEDS ORDERED: medroxyPROGESTERone 10 MG TABLET PO SCH (09:00)
[2021-11-26] MEDS: ACETAMINOPHEN 325 MG TABLET PO PRN ×2 (11:47→22:37)
[2021-11-26] MEDS ORDERED: VANCOMYCIN INJ 1,000 MG in SODIUM CHLORIDE 0.9% 250 ML IV SCH (15:30)
[2021-11-26] MEDS: ENOXAPARIN 60 MG/0.6 ML SYRINGE SUBCUT SCH (16:27)
[2021-11-26] MEDS: VANCOMYCIN INJ 2,000 MG in SODIUM CHLORIDE 0.9% 500 ML IV SCH (16:53)
[2021-11-27] MEDS: VANCOMYCIN INJ 2,000 MG in SODIUM CHLORIDE 0.9% 500 ML IV SCH (04:20)
[2021-11-27 06:35] LABS: Basophils # 0.1 10*3/uL (0.0-0.2); Basophils % 0.4 % (0.0-0.8); Eosinophils # 0.3 10*3/uL (0.0-0.87); Eosinophils % 1.7 % (0.00-10.9); Immature Granulocytes % 11.9 %; Immature Granulocytes Absolute 2.09 #; Lymphocytes # 2.5 10*3/uL (1.4-4.0); Lymphocytes % 14.3 % (21.3-54.2); Mean Corpuscular HGB Conc 34.3 GM/DL (32-36); Mean Corpuscular Volume 79.9 FL (87-102); Mean Platelet Volume 11.1 FL (9.6-12.0); Monocytes % 4.1 % (1.7-12.7); NRBC # 0.58 10*3/uL; Neutrophils % 67.6 % (38.7-73.9); Platelet Count 301 T/CUMM (130-400); Red Blood Count 4.38 MC/CUMM (3.8-5.5); Red Cell Distribution Width 15.5 % (9.3-17.3); White Blood Count 17.5 T/CUMM (4-12)
[2021-11-27 06:55] LABS: Band Neutrophils 3 % (0-10); Eosinophils 1 % (0-10); Hypochromia 1+; Lymphocytes 14 % (20-55); Metamyelocytes 1 %; Myelocytes 1 %; Nucleated Red Blood Cells 4 (0-5); Segmented Neutrophils 72 % (50-85); Total Cells Counted 100
[2021-11-27 06:56] LABS: Anisocytosis 1+; Microcytosis 1+; Polychromasia Slight; Target Cells Few
[2021-11-27 06:57] LABS: Platelet Estimate Normal
[2021-11-27 06:58] LABS: Calcium 8.6 MG/DL (8.5-10.1); Osmolality,Calculated 273.1 MOS/KG (273-304)
[2021-11-27] MEDS: ACETAMINOPHEN 325 MG TABLET PO PRN ×2 (07:01→17:11)
[2021-11-27] MEDS: MEROPENEM 2,000 MG in SODIUM CHLORIDE 0.9% 100 ML IV SCH (08:17)
[2021-11-27] MEDS: MELOXICAM 7.5 MG TABLET PO SCH (08:17)
[2021-11-27] MEDS: PREGABALIN 50 MG CAPSULE PO SCH (08:18)
[2021-11-27] MEDS: POTASSIUM CHLORIDE 20 MEQ TABLET PO SCH (08:18)
[2021-11-27] MEDS: CELECOXIB 200 MG CAPSULE PO SCH (08:18)
[2021-11-27] MEDS: amLODIPine 10 MG TABLET PO SCH (08:18)
[2021-11-27] MEDS: DOCUSATE SODIUM 100 MG CAPSULE PO SCH ×2 (08:19→21:04)
[2021-11-27] MEDS: ISOSORBIDE MONONITRATE 30 MG TABLET PO SCH (08:19)
[2021-11-27] MEDS: FUROSEMIDE 40 MG TABLET PO SCH (08:19)
[2021-11-27] MEDS: INSULIN LISPRO 100 UNIT/ML SUBCUT SCH ×4 (08:34→21:05)
[2021-11-27] MEDS: MEROPENEM 500 MG in SODIUM CHLORIDE 0.9% 100 ML IV SCH ×2 (15:02→21:04)
[2021-11-27] MEDS: GENTAMICIN 0.1% CREAM 15 GM TUBE TOP SCH ×3 (15:03→21:33)
[2021-11-27] MEDS: SKIN HEALING OINT (AQUAPHOR) 50 GM TUBE TOP SCH (15:07)
[2021-11-27] MEDS: ENOXAPARIN 60 MG/0.6 ML SYRINGE SUBCUT SCH (17:12)
[2021-11-28] MEDS: MEROPENEM 500 MG in SODIUM CHLORIDE 0.9% 100 ML IV SCH ×4 (03:42→21:34)
[2021-11-28 05:24] LABS: Basophils # 0.1 10*3/uL (0.0-0.2); Basophils % 0.7 % (0.0-0.8); Eosinophils # 0.4 10*3/uL (0.0-0.87); Eosinophils % 2.8 % (0.00-10.9); Hematocrit 34.3 VOL% (35.7-47.0); Hemoglobin 11.8 GM/DL (12.0-16.0); Immature Granulocytes % 7.7 %; Immature Granulocytes Absolute 1.21 #; Lymphocytes # 2.1 10*3/uL (1.4-4.0); Lymphocytes % 13.1 % (21.3-54.2); Mean Corpuscular HGB Conc 34.4 GM/DL (32-36); Mean Corpuscular Volume 80.3 FL (87-102); Mean Platelet Volume 10.7 FL (9.6-12.0); Monocytes % 4.3 % (1.7-12.7); NRBC # 0.46 10*3/uL; Neutrophils % 71.4 % (38.7-73.9); Platelet Count 293 T/CUMM (130-400); Red Blood Count 4.27 MC/CUMM (3.8-5.5); Red Cell Distribution Width 15.6 % (9.3-17.3); White Blood Count 15.8 T/CUMM (4-12)
[2021-11-28 05:40] LABS: Calcium 8.6 MG/DL (8.5-10.1); Osmolality,Calculated 275.8 MOS/KG (273-304); Potassium 4.5 MMOL/L (3.5-5.1)
[2021-11-28 05:54] LABS: Band Neutrophils 3 % (0-10); Eosinophils 2 % (0-10); Hypochromia 1+; Lymphocytes 11 % (20-55); Microcytosis 1+; Myelocytes 3 %; Nucleated Red Blood Cells 2 (0-5); Segmented Neutrophils 76 % (50-85); Total Cells Counted 100
[2021-11-28 05:55] LABS: Polychromasia Slight; Target Cells Few
[2021-11-28] MEDS: ACETAMINOPHEN 325 MG TABLET PO PRN ×3 (06:20→21:33)
[2021-11-28] MEDS: INSULIN LISPRO 100 UNIT/ML SUBCUT SCH ×4 (08:47→21:35)
[2021-11-28] MEDS: DOCUSATE SODIUM 100 MG CAPSULE PO SCH ×2 (08:47→21:33)
[2021-11-28] MEDS: ISOSORBIDE MONONITRATE 30 MG TABLET PO SCH (08:47)
[2021-11-28] MEDS: MELOXICAM 7.5 MG TABLET PO SCH (08:48)
[2021-11-28] MEDS: amLODIPine 10 MG TABLET PO SCH (08:48)
[2021-11-28] MEDS: PREGABALIN 50 MG CAPSULE PO SCH (08:48)
[2021-11-28] MEDS: FUROSEMIDE 40 MG TABLET PO SCH (08:48)
[2021-11-28] MEDS: POTASSIUM CHLORIDE 20 MEQ TABLET PO SCH (08:48)
[2021-11-28] MEDS: oxyCODONE/ACETAMINOPHEN 5-325 MG TABLET PO PRN ×2 (08:49→18:20)
[2021-11-28] MEDS: SKIN HEALING OINT (AQUAPHOR) 50 GM TUBE TOP SCH (08:49)
[2021-11-28] MEDS: GENTAMICIN 0.1% CREAM 15 GM TUBE TOP SCH ×2 (08:49→15:59)
[2021-11-28] MEDS: CELECOXIB 200 MG CAPSULE PO SCH (08:52)
[2021-11-28] MEDS: SERTRALINE 50 MG TABLET PO SCH (13:17)
[2021-11-28] MEDS: ENOXAPARIN 60 MG/0.6 ML SYRINGE SUBCUT SCH (16:02)
[2021-11-29] MEDS: MEROPENEM 500 MG in SODIUM CHLORIDE 0.9% 100 ML IV SCH ×2 (02:31→10:34)
[2021-11-29] MEDS: oxyCODONE/ACETAMINOPHEN 5-325 MG TABLET PO PRN (04:41)
[2021-11-29] MEDS: INSULIN LISPRO 100 UNIT/ML SUBCUT SCH ×3 (08:10→20:23)
[2021-11-29] MEDS: amLODIPine 10 MG TABLET PO SCH (10:35)
[2021-11-29] MEDS: PREGABALIN 50 MG CAPSULE PO SCH (10:35)
[2021-11-29] MEDS: ACETAMINOPHEN 325 MG TABLET PO PRN (10:36)
[2021-11-29] MEDS: SERTRALINE 50 MG TABLET PO SCH (10:36)
[2021-11-29] MEDS: DOCUSATE SODIUM 100 MG CAPSULE PO SCH (10:36)
[2021-11-29] MEDS: SKIN HEALING OINT (AQUAPHOR) 50 GM TUBE TOP SCH (10:36)
[2021-11-29] MEDS: ISOSORBIDE MONONITRATE 30 MG TABLET PO SCH (10:37)
[2021-11-29] MEDS: FUROSEMIDE 40 MG TABLET PO SCH (10:37)
[2021-11-29] MEDS: MELOXICAM 7.5 MG TABLET PO SCH (10:37)
[2021-11-29] MEDS: POTASSIUM CHLORIDE 20 MEQ TABLET PO SCH (10:37)
[2021-11-29 12:07] VITALS: BP 99/66
[2021-11-29] MEDS: GENTAMICIN 0.1% CREAM 15 GM TUBE TOP SCH ×2 (15:25→18:50)
[2021-11-29] MEDS: CELECOXIB 200 MG CAPSULE PO SCH (20:20)
[2021-11-29] MEDS: ENOXAPARIN 60 MG/0.6 ML SYRINGE SUBCUT SCH (20:22)
[2021-11-29] MEDS ORDERED: SULFAMETHOX/TRIMETHOPRIM 800-160 MG TABLET PO SCH (21:00)
== END 2021-11-29 16:45 | disposition hospice, home (50) | DRG 291 ==
LOC: SUATTDRO → N.ED 11:31 → SUATTDRO 15:33 → N.EDINP 15:33 → N.TELEN 17:09
PROVIDERS: ADMIT Internal Medicine; ATTEND Internal Medicine Geriatric Medicine

== ENCOUNTER 2022-08-14 11:55 | Inpatient (IN) ==
[2022-08-14 13:55] LABS: Basophils % 0.3 % (0.0-0.8); Eosinophils # 0.3 10*3/uL (0.0-0.87); Eosinophils % 4.1 % (0.00-10.9); Hematocrit 37.4 VOL% (35.7-47.0); Hemoglobin 12.7 GM/DL (12.0-16.0); Immature Granulocytes % 0.5 %; Immature Granulocytes Absolute 0.04 #; Lymphocytes # 1.6 10*3/uL (1.4-4.0); Lymphocytes % 19.7 % (21.3-54.2); Mean Corpuscular Volume 83.5 FL (87-102); Mean Platelet Volume 12.2 FL (9.6-12.0); Monocytes # 0.3 10*3/uL (0.11-0.8); Monocytes % 3.6 % (1.7-12.7); Neutrophils % 71.8 % (38.7-73.9); Platelet Count 154 T/CUMM (130-400); Red Blood Count 4.48 MC/CUMM (3.8-5.5)
[2022-08-14 14:14] LABS: Albumin 2.8 G/DL (3.4-5.0); Bilirubin,Total 0.4 MG/DL (0.20-1.00); Calcium 8.8 MG/DL (8.5-10.1); Osmolality,Calculated 277.4 MOS/KG (273-304); Potassium 4.1 MMOL/L (3.5-5.1); Total Protein 8.7 G/DL (6.4-8.2)
[2022-08-14] MEDS ORDERED: ONDANSETRON 4 MG/2 ML VIAL IV PRN (15:02)
[2022-08-14] MEDS ORDERED: FUROSEMIDE 40 MG TABLET PO SCH (21:00)
[2022-08-14] MEDS: MEROPENEM 500 MG in SODIUM CHLORIDE 0.9% 100 ML IV SCH ×3 (21:29→23:59)
[2022-08-14] MEDS: ENOXAPARIN 40 MG/0.4 ML SYRINGE SUBCUT SCH (22:17)
[2022-08-15] MEDS: FUROSEMIDE 40 MG/4 ML VIAL IV SCH ×4 (01:51→17:47)
[2022-08-15 05:43] LABS: Basophils % 0.3 % (0.0-0.8); Eosinophils # 0.3 10*3/uL (0.0-0.87); Eosinophils % 4.1 % (0.00-10.9); Hemoglobin 12.4 GM/DL (12.0-16.0); Immature Granulocytes % 0.3 %; Immature Granulocytes Absolute 0.02 #; Lymphocytes # 1.5 10*3/uL (1.4-4.0); Lymphocytes % 19.7 % (21.3-54.2); Mean Corpuscular HGB Conc 34.4 GM/DL (32-36); Mean Corpuscular Volume 84.5 FL (87-102); Mean Platelet Volume 12.5 FL (9.6-12.0); Monocytes # 0.3 10*3/uL (0.11-0.8); Monocytes % 4.5 % (1.7-12.7); Neutrophils % 71.1 % (38.7-73.9); Platelet Count 173 T/CUMM (130-400); Red Blood Count 4.26 MC/CUMM (3.8-5.5); Red Cell Distribution Width 16.8 % (9.3-17.3); White Blood Count 7.4 T/CUMM (4-12)
[2022-08-15] MEDS: MEROPENEM 500 MG in SODIUM CHLORIDE 0.9% 100 ML IV SCH ×4 (05:58→22:25)
[2022-08-15 06:01] LABS: Calcium 8.8 MG/DL (8.5-10.1); Osmolality,Calculated 278.3 MOS/KG (273-304); Potassium 3.9 MMOL/L (3.5-5.1)
[2022-08-15] MEDS: CELECOXIB 200 MG CAPSULE PO SCH (09:58)
[2022-08-15] MEDS: ISOSORBIDE MONONITRATE 30 MG TABLET PO SCH (09:58)
[2022-08-15] MEDS: PREGABALIN 50 MG CAPSULE PO SCH (09:58)
[2022-08-15] MEDS: amLODIPine 10 MG TABLET PO SCH (09:58)
[2022-08-15] MEDS: SERTRALINE 50 MG TABLET PO SCH (09:59)
[2022-08-15] MEDS: PANTOPRAZOLE 40 MG TABLET PO SCH (09:59)
[2022-08-15] MEDS: BACLOFEN 10 MG TABLET PO PRN (14:10)
[2022-08-15] MEDS: ZINC OXIDE PASTE 113 GM TUBE TOP SCH ×2 (14:16→21:09)
[2022-08-15] MEDS ORDERED: ALBUTEROL 2.5 MG/3 ML NEB RESP TX PRN (15:00)
[2022-08-15] MEDS: traMADol 50 MG TABLET PO PRN (17:46)
[2022-08-15] MEDS: ENOXAPARIN 40 MG/0.4 ML SYRINGE SUBCUT SCH (21:08)
[2022-08-16] MEDS: MEROPENEM 500 MG in SODIUM CHLORIDE 0.9% 100 ML IV SCH ×4 (04:13→22:52)
[2022-08-16] MEDS: ISOSORBIDE MONONITRATE 30 MG TABLET PO SCH (09:11)
[2022-08-16] MEDS: SPIRONOLACTONE 50 MG TABLET PO SCH (09:11)
[2022-08-16] MEDS: SERTRALINE 50 MG TABLET PO SCH (09:11)
[2022-08-16] MEDS: METOPROLOL TARTRATE 25 MG TABLET PO SCH (09:11)
[2022-08-16] MEDS: PANTOPRAZOLE 40 MG TABLET PO SCH (09:11)
[2022-08-16] MEDS: CELECOXIB 200 MG CAPSULE PO SCH (09:11)
[2022-08-16] MEDS: MELOXICAM 7.5 MG TABLET PO SCH (09:11)
[2022-08-16] MEDS: PREGABALIN 50 MG CAPSULE PO SCH (09:12)
[2022-08-16] MEDS: amLODIPine 10 MG TABLET PO SCH (09:12)
[2022-08-16] MEDS: FUROSEMIDE 40 MG/4 ML VIAL IV SCH ×2 (09:15→16:28)
[2022-08-16] MEDS: ZINC OXIDE PASTE 113 GM TUBE TOP SCH ×2 (09:35→21:40)
[2022-08-16] MEDS: BACLOFEN 10 MG TABLET PO PRN ×2 (16:33→22:52)
[2022-08-16] MEDS: ENOXAPARIN 40 MG/0.4 ML SYRINGE SUBCUT SCH (21:39)
[2022-08-17] MEDS: MEROPENEM 500 MG in SODIUM CHLORIDE 0.9% 100 ML IV SCH ×4 (04:59→23:24)
[2022-08-17] MEDS: FUROSEMIDE 40 MG/4 ML VIAL IV SCH ×2 (08:40→15:00)
[2022-08-17] MEDS: amLODIPine 10 MG TABLET PO SCH (08:43)
[2022-08-17] MEDS: PANTOPRAZOLE 40 MG TABLET PO SCH (08:43)
[2022-08-17] MEDS: ISOSORBIDE MONONITRATE 30 MG TABLET PO SCH (08:43)
[2022-08-17] MEDS: MELOXICAM 7.5 MG TABLET PO SCH (08:43)
[2022-08-17] MEDS: CELECOXIB 200 MG CAPSULE PO SCH (08:43)
[2022-08-17] MEDS: PREGABALIN 50 MG CAPSULE PO SCH (08:43)
[2022-08-17] MEDS: SPIRONOLACTONE 50 MG TABLET PO SCH (08:43)
[2022-08-17] MEDS: ZINC OXIDE PASTE 113 GM TUBE TOP SCH ×2 (08:43→21:37)
[2022-08-17] MEDS: SERTRALINE 50 MG TABLET PO SCH (08:43)
[2022-08-17] MEDS: METOPROLOL TARTRATE 25 MG TABLET PO SCH (08:43)
[2022-08-17] MEDS: BACLOFEN 10 MG TABLET PO PRN (20:09)
[2022-08-17] MEDS: ENOXAPARIN 40 MG/0.4 ML SYRINGE SUBCUT SCH (21:35)
[2022-08-18] MEDS: traMADol 50 MG TABLET PO PRN (00:58)
[2022-08-18] MEDS: MEROPENEM 500 MG in SODIUM CHLORIDE 0.9% 100 ML IV SCH ×4 (04:30→23:42)
[2022-08-18 06:10] LABS: Basophils % 0.4 % (0.0-0.8); Eosinophils # 0.4 10*3/uL (0.0-0.87); Eosinophils % 5.5 % (0.00-10.9); Hematocrit 37.9 VOL% (35.7-47.0); Hemoglobin 12.8 GM/DL (12.0-16.0); Immature Granulocytes % 0.5 %; Immature Granulocytes Absolute 0.04 #; Lymphocytes # 2.1 10*3/uL (1.4-4.0); Lymphocytes % 27.6 % (21.3-54.2); Mean Corpuscular HGB Conc 33.8 GM/DL (32-36); Mean Platelet Volume 11.4 FL (9.6-12.0); Monocytes # 0.4 10*3/uL (0.11-0.8); Monocytes % 5.2 % (1.7-12.7); NRBC # 0.02 10*3/uL; Neutrophils % 60.8 % (38.7-73.9); Platelet Count 142 T/CUMM (130-400); Red Blood Count 4.51 MC/CUMM (3.8-5.5); Red Cell Distribution Width 16.3 % (9.3-17.3); White Blood Count 7.5 T/CUMM (4-12)
[2022-08-18 06:40] LABS: Calcium 8.5 MG/DL (8.5-10.1); Osmolality,Calculated 276.5 MOS/KG (273-304); Potassium 3.3 MMOL/L (3.5-5.1)
[2022-08-18] MEDS ORDERED: POTASSIUM CHLORIDE 20 MEQ TABLET PO ONE (07:24)
[2022-08-18] MEDS ORDERED: MAGNESIUM SULF RIDER 2 GM/50 ML PREMIX IV ONE (07:25)
[2022-08-18] MEDS: CELECOXIB 200 MG CAPSULE PO SCH (09:49)
[2022-08-18] MEDS: SPIRONOLACTONE 50 MG TABLET PO SCH (09:49)
[2022-08-18] MEDS: amLODIPine 10 MG TABLET PO SCH (09:49)
[2022-08-18] MEDS: MELOXICAM 7.5 MG TABLET PO SCH (09:49)
[2022-08-18] MEDS: SERTRALINE 50 MG TABLET PO SCH (09:49)
[2022-08-18] MEDS: PANTOPRAZOLE 40 MG TABLET PO SCH (09:50)
[2022-08-18] MEDS: PREGABALIN 50 MG CAPSULE PO SCH (09:50)
[2022-08-18] MEDS: ISOSORBIDE MONONITRATE 30 MG TABLET PO SCH (09:50)
[2022-08-18] MEDS: FUROSEMIDE 40 MG/4 ML VIAL IV SCH ×2 (09:50→17:47)
[2022-08-18] MEDS: METOPROLOL TARTRATE 25 MG TABLET PO SCH (09:50)
[2022-08-18] MEDS: ZINC OXIDE PASTE 113 GM TUBE TOP SCH ×2 (09:51→20:46)
[2022-08-18] MEDS: BACLOFEN 10 MG TABLET PO PRN (20:46)
[2022-08-18] MEDS: ENOXAPARIN 40 MG/0.4 ML SYRINGE SUBCUT SCH (20:47)
[2022-08-19] MEDS: MEROPENEM 500 MG in SODIUM CHLORIDE 0.9% 100 ML IV SCH ×4 (04:33→23:25)
[2022-08-19] MEDS: FUROSEMIDE 40 MG/4 ML VIAL IV SCH (08:31)
[2022-08-19] MEDS: METOPROLOL TARTRATE 25 MG TABLET PO SCH (08:32)
[2022-08-19] MEDS: ZINC OXIDE PASTE 113 GM TUBE TOP SCH ×2 (08:32→21:55)
[2022-08-19] MEDS: MELOXICAM 7.5 MG TABLET PO SCH (08:32)
[2022-08-19] MEDS: SPIRONOLACTONE 50 MG TABLET PO SCH (08:32)
[2022-08-19] MEDS: PREGABALIN 50 MG CAPSULE PO SCH (08:32)
[2022-08-19] MEDS: ISOSORBIDE MONONITRATE 30 MG TABLET PO SCH (08:32)
[2022-08-19] MEDS: CELECOXIB 200 MG CAPSULE PO SCH (08:32)
[2022-08-19] MEDS: MAGNESIUM OXIDE 400 MG TABLET PO SCH ×2 (08:32→21:52)
[2022-08-19] MEDS: SERTRALINE 50 MG TABLET PO SCH (08:33)
[2022-08-19] MEDS: amLODIPine 10 MG TABLET PO SCH (08:33)
[2022-08-19] MEDS: PANTOPRAZOLE 40 MG TABLET PO SCH (08:33)
[2022-08-19] MEDS ORDERED: MOISTURIZING CREAM (EUCERIN) 106 GM JAR TOP PRN (11:35)
[2022-08-19] MEDS: POLYETHYLENE GLYCOL POWDER 17 GM PACK PO SCH ×2 (12:00→21:57)
[2022-08-19] MEDS: BACLOFEN 10 MG TABLET PO PRN (21:52)
[2022-08-19] MEDS: DOCUSATE SODIUM 100 MG CAPSULE PO SCH (21:52)
[2022-08-19] MEDS: ENOXAPARIN 40 MG/0.4 ML SYRINGE SUBCUT SCH (21:54)
[2022-08-20 05:30] LABS: Basophils % 0.1 % (0.0-0.8); Eosinophils # 0.3 10*3/uL (0.0-0.87); Eosinophils % 3.8 % (0.00-10.9); Hematocrit 36.2 VOL% (35.7-47.0); Hemoglobin 12.2 GM/DL (12.0-16.0); Immature Granulocytes % 0.1 %; Immature Granulocytes Absolute 0.01 #; Lymphocytes # 1.7 10*3/uL (1.4-4.0); Lymphocytes % 24.4 % (21.3-54.2); Mean Corpuscular HGB Conc 33.7 GM/DL (32-36); Mean Corpuscular Volume 84.6 FL (87-102); Mean Platelet Volume 11.6 FL (9.6-12.0); Monocytes # 0.3 10*3/uL (0.11-0.8); Monocytes % 4.8 % (1.7-12.7); Neutrophils % 66.8 % (38.7-73.9); Platelet Count 143 T/CUMM (130-400); Red Blood Count 4.28 MC/CUMM (3.8-5.5)
[2022-08-20] MEDS: MEROPENEM 500 MG in SODIUM CHLORIDE 0.9% 100 ML IV SCH ×4 (05:48→23:30)
[2022-08-20 05:59] LABS: Calcium 8.4 MG/DL (8.5-10.1); Osmolality,Calculated 275.7 MOS/KG (273-304); Potassium 3.4 MMOL/L (3.5-5.1)
[2022-08-20] MEDS: CELECOXIB 200 MG CAPSULE PO SCH (09:15)
[2022-08-20] MEDS: ISOSORBIDE MONONITRATE 30 MG TABLET PO SCH (09:15)
[2022-08-20] MEDS: MELOXICAM 7.5 MG TABLET PO SCH (09:15)
[2022-08-20] MEDS: PREGABALIN 50 MG CAPSULE PO SCH (09:16)
[2022-08-20] MEDS: POLYETHYLENE GLYCOL POWDER 17 GM PACK PO SCH ×2 (09:16→23:28)
[2022-08-20] MEDS: PANTOPRAZOLE 40 MG TABLET PO SCH (09:16)
[2022-08-20] MEDS: METOPROLOL TARTRATE 25 MG TABLET PO SCH (09:16)
[2022-08-20] MEDS: MAGNESIUM OXIDE 400 MG TABLET PO SCH ×2 (09:16→23:14)
[2022-08-20] MEDS: FUROSEMIDE 40 MG TABLET PO SCH (09:16)
[2022-08-20] MEDS: SERTRALINE 50 MG TABLET PO SCH (09:16)
[2022-08-20] MEDS: SPIRONOLACTONE 50 MG TABLET PO SCH (09:16)
[2022-08-20] MEDS: amLODIPine 10 MG TABLET PO SCH (09:16)
[2022-08-20] MEDS: DOCUSATE SODIUM 100 MG CAPSULE PO SCH ×2 (09:16→23:28)
[2022-08-20] MEDS: ZINC OXIDE PASTE 113 GM TUBE TOP SCH ×2 (09:17→23:14)
[2022-08-20] MEDS ORDERED: POTASSIUM CHLORIDE 20 MEQ TABLET PO ONE (13:58)
[2022-08-20] MEDS: BACLOFEN 10 MG TABLET PO PRN (23:13)
[2022-08-20] MEDS: ENOXAPARIN 40 MG/0.4 ML SYRINGE SUBCUT SCH (23:28)
[2022-08-21 04:21] LABS: Basophils % 0.3 % (0.0-0.8); Eosinophils # 0.4 10*3/uL (0.0-0.87); Eosinophils % 5.2 % (0.00-10.9); Hematocrit 34.3 VOL% (35.7-47.0); Hemoglobin 11.7 GM/DL (12.0-16.0); Immature Granulocytes % 0.4 %; Immature Granulocytes Absolute 0.03 #; Lymphocytes # 1.8 10*3/uL (1.4-4.0); Lymphocytes % 23.3 % (21.3-54.2); Mean Corpuscular HGB Conc 34.1 GM/DL (32-36); Mean Corpuscular Volume 84.1 FL (87-102); Monocytes # 0.4 10*3/uL (0.11-0.8); Monocytes % 4.9 % (1.7-12.7); Neutrophils % 65.9 % (38.7-73.9); Platelet Count 146 T/CUMM (130-400); Red Blood Count 4.08 MC/CUMM (3.8-5.5); White Blood Count 7.6 T/CUMM (4-12)
[2022-08-21] MEDS: MEROPENEM 500 MG in SODIUM CHLORIDE 0.9% 100 ML IV SCH (04:40)
[2022-08-21 04:48] LABS: Calcium 8.4 MG/DL (8.5-10.1); Osmolality,Calculated 278.5 MOS/KG (273-304); Potassium 3.7 MMOL/L (3.5-5.1)
[2022-08-21] MEDS ORDERED: ERTAPENEM 1,000 MG in SODIUM CHLORIDE 0.9% 100 ML IV SCH (09:00)
[2022-08-21] MEDS: FUROSEMIDE 40 MG TABLET PO SCH (09:02)
[2022-08-21] MEDS: METOPROLOL TARTRATE 25 MG TABLET PO SCH (09:02)
[2022-08-21] MEDS: ISOSORBIDE MONONITRATE 30 MG TABLET PO SCH (09:02)
[2022-08-21] MEDS: SERTRALINE 50 MG TABLET PO SCH (09:02)
[2022-08-21] MEDS: SPIRONOLACTONE 50 MG TABLET PO SCH (09:02)
[2022-08-21] MEDS: amLODIPine 10 MG TABLET PO SCH (09:02)
[2022-08-21] MEDS: PANTOPRAZOLE 40 MG TABLET PO SCH (09:02)
[2022-08-21] MEDS: MELOXICAM 7.5 MG TABLET PO SCH (09:02)
[2022-08-21] MEDS: CELECOXIB 200 MG CAPSULE PO SCH (09:02)
[2022-08-21] MEDS: PREGABALIN 50 MG CAPSULE PO SCH (09:02)
[2022-08-21] MEDS: ZINC OXIDE PASTE 113 GM TUBE TOP SCH (09:03)
[2022-08-21] MEDS: DOCUSATE SODIUM 100 MG CAPSULE PO SCH (09:03)
[2022-08-21] MEDS: MAGNESIUM OXIDE 400 MG TABLET PO SCH (09:03)
[2022-08-21] MEDS: POLYETHYLENE GLYCOL POWDER 17 GM PACK PO SCH (09:03)
[2022-08-21 16:20] VITALS: BP 132/71
== END 2022-08-21 18:54 | DRG 604 ==
LOC: EDBD → EDUNIT# → N.ED 11:55 → N.EDINP 11:55 → SUATTDRO 14:56 → N.TELEN 16:48 → SUATTDRO 08-16 10:20
PROVIDERS: ADMIT Internal Medicine; ATTEND Internal Medicine